=== PATIENT | female | born 1970 | race Caucasian/White ===

== ENCOUNTER 2016-05-10 13:19 | Emergency (ER) | payer MEDICAID ==
[~2016-05-10] VITALS: Ht 162.6 cm; Wt 81.2 kg
[~2016-05-10 13:19] MED LIST: ACET325T14 PO; ALBU18HF INH; ARIP5TAB6 PO; BISA10SU65 PR; CEFD300C2 PO; DIPH25CA61 PO; DOCU-30 PO; ENOX30SY4 SQ; HYDR2TAB40 PO; LACT10SO5 PO; METR500T PO; OMEP-110 PO; ONDA4TAB10 PO; PARO20TA55 PO; POLY17PO5 PO; SERT50TA PO; TRAZ150T68 PO; ZIPR20CA2 PO; [UNRECOGNIZED DRUG - OTHER] PO
[2016-05-10 13:35] VITALS: BP 108/77
== END 2016-05-10 14:36 | disposition home or self-care (01) ==
LOC: ED 14:15
DX: J01.00 Acute maxillary sinusitis, unspecified (principal); J20.9 Acute bronchitis, unspecified; J44.1 Chronic obstructive pulmonary disease with (acute) exacerbation
CPT/HCPCS: 71010; 93005; 99284

== ENCOUNTER 2016-07-28 07:54 | Emergency (ER) | payer MEDICAID ==
[~2016-07-28] VITALS: Ht 162.6 cm; Wt 78.6 kg
[~2016-07-28 07:54] MED LIST changes: -CEFD300C2 PO; +CEFD300C37 PO
[2016-07-28 07:56] VITALS: BP 113/75
[2016-07-28] MEDS ORDERED: DEXAMETHASONE 4 MG TABLET ONE (08:25)
[2016-07-28] MEDS ORDERED: DEXAMETHASONE 4 MG TABLET PO ONE (08:30)
[2016-08-07] MEDS ORDERED: ALBU6.7H INH (09:30)
[2016-08-07] MEDS ORDERED: CYCL-259 PO (09:30)
[2016-08-07] MEDS ORDERED: TIOT18CA INH (09:30)
== END 2016-07-28 09:19 | disposition home or self-care (01) ==
LOC: ED 08:40
DX: J20.9 Acute bronchitis, unspecified (principal); J45.31 Mild persistent asthma with (acute) exacerbation
CPT/HCPCS: 71020; 99284

== ENCOUNTER 2016-10-20 23:05 | Emergency (ER) | payer MEDICAID ==
[~2016-10-20] VITALS: Ht 162.6 cm; Wt 80.0 kg
[~2016-10-20 23:05] MED LIST changes: +ALBU6.7H INH; +ARIP5TAB13 PO; -ARIP5TAB6 PO; +CYCL-259 PO; +DOCU-131 PO; -DOCU-30 PO; -PARO20TA55 PO; +PARO20TA98 PO; +TIOT18CA INH; +TRAZ150T62 PO; -TRAZ150T68 PO
[2016-10-20] MEDS ORDERED: ALBUTEROL/IPRATROPIUM 2.5MG/0.5MG, 3 ML ONE (23:59)
[2016-10-21] MEDS ORDERED: ALBUTEROL/IPRATROPIUM 2.5MG/0.5MG, 3 ML NPPB ONE
[2016-10-21] MEDS ORDERED: IBUPROFEN 200 MG TABLET ONE (00:52)
[2016-10-21] MEDS ORDERED: IBUPROFEN 200 MG TABLET PO ONE (01:00)
[2016-10-21 03:19] VITALS: BP 128/78
== END 2016-10-21 03:22 | disposition home or self-care (01) ==
LOC: ED 23:59
DX: S16.1XXA Strain of muscle, fascia and tendon at neck level, initial encounter (principal); M10.9 Gout, unspecified; M32.9 Systemic lupus erythematosus, unspecified; J44.9 Chronic obstructive pulmonary disease, unspecified; F10.129 Alcohol abuse with intoxication, unspecified; F19.10 Other psychoactive substance abuse, uncomplicated; X50.1XXA Overexertion from prolonged static or awkward postures, initial encounter; Y93.84 Activity, sleeping; Y99.8 Other external cause status; Y92.148 Other place in prison as the place of occurrence of the external cause
CPT/HCPCS: 71010; 94640; 99283; J7620

== ENCOUNTER 2016-10-25 21:26 | Emergency (ER) | payer MEDICAID ==
[~2016-10-25] VITALS: Ht 162.6 cm; Wt 77.7 kg
[2016-10-25] MEDS ORDERED: PROMETHAZINE 25 MG/ML, 1ML IM ONE (23:00)
[2016-10-25] MEDS ORDERED: PROMETHAZINE 25 MG/ML, 1ML ONE (23:00)
[2016-10-25 23:31] LABS: HEMATOCRIT 44.5 % (34.6-47.8); HEMOGLOBIN 15.2 g/dL (11.7-16.4); WHITE BLOOD COUNT 8.3 x10^3/uL (3.4-10)
[2016-10-25 23:35] LABS: ASPARTATE AMINO TRANSFERASE 26 U/L (15-37); BLOOD UREA NITROGEN 8 mg/dL (7-18)
[2016-10-26] MEDS ORDERED: PROMETHAZINE 25MG TABLET PO ONE
[2016-10-26 00:29] VITALS: BP 120/70
== END 2016-10-26 00:31 | disposition home or self-care (01) ==
LOC: ED 23:59
DX: F10.229 Alcohol dependence with intoxication, unspecified (principal); R11.2 Nausea with vomiting, unspecified; M10.9 Gout, unspecified; J44.9 Chronic obstructive pulmonary disease, unspecified
CPT/HCPCS: 36415; 80053; 80307; 85025; 99284; Q0169

== ENCOUNTER 2016-11-28 19:54 | Emergency (ER) | payer MEDICAID ==
[~2016-11-28] VITALS: Ht 162.6 cm; Wt 85.3 kg
[2016-11-28 20:38] LABS: HEMATOCRIT 45.2 % (34.6-47.8); HEMOGLOBIN 15.3 g/dL (11.7-16.4); WHITE BLOOD COUNT 8.6 x10^3/uL (3.4-10)
[2016-11-28 20:51] LABS: BLOOD UREA NITROGEN 9 mg/dL (7-18)
[2016-11-28 23:54] VITALS: BP 112/69
== END 2016-11-28 23:56 | disposition home or self-care (01) ==
LOC: ED 21:48
DX: F15.10 Other stimulant abuse, uncomplicated (principal); F10.10 Alcohol abuse, uncomplicated
CPT/HCPCS: 36415; 80048; 82040; 85025; 99284

== ENCOUNTER 2017-01-13 10:25 | Emergency (ER) | payer MEDICAID ==
[~2017-01-13] VITALS: Ht 162.6 cm; Wt 81.0 kg
[2017-01-13 10:34] VITALS: BP 129/77
== END 2017-01-13 11:43 | disposition left against medical advice (07) ==
LOC: ED 11:01
DX: M54.5 Low back pain (principal); Z53.21 Procedure and treatment not carried out due to patient leaving prior to being seen by health care provider

== ENCOUNTER 2017-04-06 02:13 | Emergency (ER) | payer MEDICAID ==
[~2017-04-06] VITALS: Ht 162.6 cm; Wt 70.0 kg
[2017-04-06 02:15] VITALS: BP 124/92
[2017-04-06] MEDS ORDERED: ONDANSETRON ODT 4 MG PO ONE (03:00)
[2017-04-06] MEDS ORDERED: LORazepam 1MG TABLET PO ONE (03:00)
[2017-04-06] MEDS ORDERED: LORazepam 1MG TABLET ONE (03:02)
[2017-04-06] MEDS ORDERED: ONDANSETRON ODT 4 MG ONE (03:02)
== END 2017-04-06 03:53 | disposition home or self-care (01) ==
LOC: ED 03:09
DX: F10.239 Alcohol dependence with withdrawal, unspecified (principal); F41.9 Anxiety disorder, unspecified; M10.9 Gout, unspecified; M32.9 Systemic lupus erythematosus, unspecified; J44.9 Chronic obstructive pulmonary disease, unspecified; F17.200 Nicotine dependence, unspecified, uncomplicated; Z60.9 Problem related to social environment, unspecified; Z91.14 Patient's other noncompliance with medication regimen; Z88.0 Allergy status to penicillin
CPT/HCPCS: 99283; Q0162

== ENCOUNTER 2017-04-23 05:29 | Emergency (ER) | payer MEDICAID ==
[~2017-04-23] VITALS: Ht 162.6 cm; Wt 71.4 kg
[2017-04-23 05:31] VITALS: BP 123/83
== END 2017-04-23 07:47 | disposition home or self-care (01) ==
LOC: ED 06:15
DX: S20.219A Contusion of unspecified front wall of thorax, initial encounter (principal); J44.9 Chronic obstructive pulmonary disease, unspecified; X58.XXXA Exposure to other specified factors, initial encounter; Y93.89 Activity, other specified; Y92.89 Other specified places as the place of occurrence of the external cause; Y99.8 Other external cause status
CPT/HCPCS: 71046; 99284

== ENCOUNTER 2017-05-10 18:45 | Emergency (ER) | payer MEDICAID ==
[~2017-05-10] VITALS: Ht 162.6 cm; Wt 67.8 kg
[2017-05-10 19:14] LABS: BASOPHILS # (AUTO) 0.03 x10^3/uL (0-0.1); BASOPHILS % (AUTO) 1 % (0-1); EOSINOPHILS # (AUTO) 0.01 x10^3/uL (0-0.4); EOSINOPHILS % (AUTO) 0 % (1-7); LYMPHOCYTES # (AUTO) 1.68 x10^3/uL (1-3.4); LYMPHOCYTES % (AUTO) 34 % (22-44); MD NO; MEAN CORPUSCULAR HEMOGLOBIN 32.7 pg (27.0-34.8); MEAN CORPUSCULAR HGB CONC 34.6 g/dL (32.4-35.8); MEAN CORPUSCULAR VOLUME 94.5 fL (80-100); MEAN PLATELET VOLUME 6.9 fL (7.4-10.4); MONOCYTES # (AUTO) 0.46 x10^3/uL (0.2-0.8); MONOCYTES % (AUTO) 9 % (2-9); NEUTROPHILS # (AUTO) 2.81 x10^3/uL (1.8-6.8); NEUTROPHILS % (AUTO) 56 % (42-75); PLATELET COUNT 248 x10^3/uL (130-400); RED BLOOD COUNT 4.99 x10^6/uL (3.82-5.3); RED CELL DISTRIBUTION WIDTH 14.1 % (9.6-15.2)
[2017-05-10 19:26] LABS: ALBUMIN 3.5 g/dL (3.4-5.0); ANION GAP 10 mmol/L (5-15); CALCIUM 8.3 mg/dL (8.5-10.1); CHLORIDE 100 mmol/L (98-107); CREATININE 0.74 mg/dL (0.55-1.02)
[2017-05-10 19:30] LABS: TROPONIN I < 0.015 ng/mL (0.000-0.045)
[2017-05-10 20:24] VITALS: BP 106/67
== END 2017-05-10 20:27 | disposition home or self-care (01) ==
LOC: ED 19:19
DX: R07.2 Precordial pain (principal); R05 Cough; J44.9 Chronic obstructive pulmonary disease, unspecified; F17.210 Nicotine dependence, cigarettes, uncomplicated
CPT/HCPCS: 36415; 71046; 80048; 82040; 84484; 85025; 93005; 99285

== ENCOUNTER 2018-05-13 08:47 | Emergency (ER) | payer MEDICAID ==
[~2018-05-13] VITALS: Ht 162.6 cm; Wt 77.3 kg
[~2018-05-13 08:47] MED LIST changes: +NALT50TA PO; +TRAZ50TA66 PO
[2018-05-13 08:53] VITALS: BP 107/54
--- NOTE | 2018-05-13 09:01 | NUR ---
THIS IS A 47 YEAR OLD FEMALE WHO C/O OF BURNING WITH URINATION X 2 DAYS. INSTRUCTED TO OBTAIN A CLEAN URINE WITH WIPES, PT VERBALZIED UNDERSTANDING
[2018-05-13] MEDS ORDERED: PHENAZOPYRIDINE 200 MG TABLET ONE (09:11)
[2018-05-13 09:25] LABS: CULTURE INDICATED? YES; MICROSCOPIC INDICATED
[2018-05-13] MEDS ORDERED: PHENAZOPYRIDINE 200 MG TABLET PO ONE (09:30)
--- NOTE | 2018-05-13 10:14 | NUR ---
Patient/Caregiver given discharge instructions and they have confirmed that they understand the instructions. Patient ambulatory with steady gait.
== END 2018-05-13 10:16 | disposition home or self-care (01) ==
LOC: ED 09:17
DX: N30.01 Acute cystitis with hematuria (principal); F17.200 Nicotine dependence, unspecified, uncomplicated
CPT/HCPCS: 81001; 87077; 87086; 87186; 99283

== ENCOUNTER 2018-07-17 08:06 | Emergency (ER) | payer MEDICAID ==
[~2018-07-17] VITALS: Ht 162.6 cm; Wt 81.2 kg
--- NOTE | 2018-07-17 08:13 | NUR ---
UA CUP GIVEN
--- NOTE | 2018-07-17 09:23 | NUR ---
PT C/O PAIN BEHIND RIGHT KNEE THAT MAKES IT DIFFICULT FOR HER TO WALK, UNKNOWN ETIOLOGY. ADDITIONALLY ABDOMINAL AND LOW BACK PAIN WITH DYSURIA. URINE SAMPLE SENT TO LAB
[2018-07-17] MEDS ORDERED: IBUPROFEN 200 MG TABLET PO ONE (09:30)
[2018-07-17 09:31] LABS: MICROSCOPIC AUTO
--- NOTE | 2018-07-17 09:50 | NUR ---
report from david chun. pt resting in room. vss. no needs expressed.
[2018-07-17] MEDS ORDERED: IBUPROFEN 600 MG TABLET ONE (10:02)
[2018-07-17 10:07] LABS: CULTURE INDICATED? YES
--- NOTE | 2018-07-17 10:23 | NUR ---
new orders for us received at this time.
[2018-07-17 10:26] VITALS: BP 91/57
[2018-07-17] MEDS ORDERED: LITH450T PO (10:26)
--- NOTE | 2018-07-17 10:27 | NUR ---
PT RESTING IN ROOM WITH EYES CLOSED AND LIGHTS DIMMED. VSS. PT MADE UPDATED ON POC AND NEW ORDERS FOR US. PT STATES WILL REMOVE PANTS FOR US. BLANKET PROVIDED. NO NEEDS EXPRESSED. CALL LIGHT WITHIN REACH.
--- NOTE | 2018-07-17 11:18 | NUR ---
PT STATES SHE NEEDS TO LEAVE EMERGENTLY. EDMD NOTFIED. US CANCELLED AND DC PAPERWORK GIVEN TO PT. PT TO DC DESK.
== END 2018-07-17 11:21 | disposition home or self-care (01) ==
LOC: ED 09:56
DX: M17.11 Unilateral primary osteoarthritis, right knee (principal); N30.00 Acute cystitis without hematuria; F17.200 Nicotine dependence, unspecified, uncomplicated; J44.9 Chronic obstructive pulmonary disease, unspecified
CPT/HCPCS: 81001; 87077; 87086; 87186; 99284

== ENCOUNTER 2018-12-17 18:34 | Emergency (ER) | payer MEDICAID ==
[~2018-12-17 18:34] MED LIST changes: -ALBU6.7H INH; +ALBU6.7H8 INH; +LACT10SO24 PO; -LACT10SO5 PO; +LITH450T PO
--- NOTE | 2018-12-17 19:06 | NUR ---
not in lobby
--- NOTE | 2018-12-17 19:37 | NUR ---
nil at this time
--- NOTE | 2018-12-17 19:57 | NUR ---
nil x 3
== END 2018-12-17 20:11 | disposition left against medical advice (07) ==
LOC: ED 19:10
DX: M54.2 Cervicalgia (principal); M54.9 Dorsalgia, unspecified; Z53.21 Procedure and treatment not carried out due to patient leaving prior to being seen by health care provider